=== PATIENT | female | born 1935 | race Caucasian/White ===

== ENCOUNTER 2019-03-22 11:25 | Outpatient (CLI) | payer OTHER | END 2019-03-22 11:27 | disposition home or self-care (01) | LOC: RAD 11:25 | DX: M54.5 Low back pain (principal) | CPT/HCPCS: 70551 ==

== ENCOUNTER 2019-03-22 11:29 | Outpatient (CLI) | payer OTHER | END 2019-03-22 11:35 | disposition home or self-care (01) | LOC: LAB 11:29 | DX: D64.89 Other specified anemias (principal); E53.8 Deficiency of other specified B group vitamins ==

== ENCOUNTER 2019-06-30 12:41 | Outpatient (CLI) | payer OTHER | END 2019-06-30 12:58 | disposition home or self-care (01) | LOC: LAB 12:41 | DX: M25.552 Pain in left hip (principal); M25.551 Pain in right hip ==

== ENCOUNTER 2021-05-09 09:00 | Outpatient (CLI) | payer OTHER | END 2021-05-09 09:15 | disposition home or self-care (01) | LOC: PPH VACUNA 09:00 | PROVIDERS: ATTEND Emergency Medicine Pediatric Emergency Medicine | DX: Z23 Encounter for immunization (principal) ==